=== PATIENT | male | born 1960 | race American Indian/Alaskan Native ===

== ENCOUNTER → 2016-10-13 | Outpatient (CLI) | payer MEDICAID ==
--- NOTE | 2016-10-13 14:19 | NM ---
Nuclear Medicine Whole Body Bone Scan Clinical Indications: Prostate cancer and hepatocellular cancer, evaluate response to therapy of bon e metastases Technique: 20.2 mCi technetium 99m MDP were injected intravenously. Delayed images of the skeleton were obtained in anterior and posterior projections. Comparison: August 02, 2015 bone scan Findings: There is decreased activity in skeletal metastases involving the spine and pelvis. No new metastases have developed. Impression: Improvement.
== END ==
LOC: FIMAGING 09:53
PROVIDERS: ATTEND Internal Medicine Hematology & Oncology
DX: Z08 Encounter for follow-up examination after completed treatment for malignant neoplasm (principal); C79.51 Secondary malignant neoplasm of bone; C61 Malignant neoplasm of prostate; C22.0 Liver cell carcinoma
CPT/HCPCS: 78306; A9503

== ENCOUNTER 2016-10-29 16:38 | Inpatient (IN) | payer MEDICAID ==
[2016-10-29] MEDS ORDERED: NS 1,000 ML IV ONE (18:06)
--- NOTE | 2016-10-29 18:06 | EDPHY ---
H & P Stated Complaint: Sent for eval of abnl abd CT HPI/ROS: HPI CHIEF COMPLAINT: Abdominal pain HISTORY OF PRESENT ILLNESS: This patient very pleasant 56-year-old male he has significant past medical history for liver CA, prostate CA, with sent to the emergency room after Dr. Elaine his oncologist performed a CT scan abdomen pelvis with IV contrast outpatient today for routine observation of his cancer. The CT scan was noted to have free air. Dr. Elaine was notified and referred the patient to the emergency room. The patient does complain of abdominal pain but very mild. Upon evaluation here in the emergency room he is resting comfortably is not vomiting he does complain of right-sided abdominal pain. This CT scan was done at [facility] CT was done earlier today. Dr. Orozco and Dr. Bello with Radiology review the CT scan and call Dr. Elaine. Past Medical History: Liver CA, prostate CA, DVT on Xarelto Past Surgical History: Hernia repair Social History: Denies use of drugs alcohol tobacco products Family History: noncontributory ROS REVIEW OF SYSTEMS: A comprehensive 10 point review of systems is otherwise negative aside from elements mentioned in the history of present illness. Exam Constitutional Appears well, nontoxic, triage nursing summary reviewed, vital signs reviewed, awake/alert. Eyes normal conjunctivae and sclera, EOMI, PERRLA. HENT normal inspection, atraumatic, moist mucus membranes, no epistaxis, neck supple/ no meningismus, no raccoon eyes. Respiratory clear to auscultation bilaterally, normal breath sounds, no respiratory distress, no wheezing. Cardiovascular rate normal, regular rhythm, no murmur, no edema, distal pulses normal. Gastrointestinal soft, mild tenderness palpation, no peritoneal signs no rebound, no guarding, normal bowel sounds, no distension, no pulsatile mass. Genitourinary no CVA tenderness. Musculoskeletal no midline vertebral tenderness, full range of motion, no calf swelling, no tenderness of extremities, no meningismus, good pulses, neurovascularly intact. Skin pink, warm, & dry, no rash, skin atraumatic. Neurologic awake, alert and oriented x 3, AAOx3, moves all 4 extremities equally, motor intact, sensory intact, CN II-XII intact, normal cerebellar, normal vision, normal speech. Psychiatric normal mood/affect. Heme/Lymph/Immune no lymphadenopathy. Differential diagnosis includes but is not limited to and in no particular order : Bowel obstruction, appendicitis, gallbladder disease, diverticulitis, colitis , enteritis, perforated viscus, gastritis, GERD, esophagitis, urinary tract infection, pyelonephritis, kidney stones Medical Decision Making: This patient had an IV established receive IV fluid bolus, pain medicine for abdominal pain he will have a quick KUB upright to look for free air underneath the diaphragms. Obtain blood work including lactic acid. And will notify surgery this patient has free air in the abdomen. I did speak with Dr. Elaine did tell me that 1 of the chemotherapy medications can cause bowel perforations unclear if this is what is causing his free air in his abdomen. It is also noted this patient's abdomen is mildly tender there is no guarding or peritoneal signs he does appear well he is not vomiting. Re-evaluation: ED X-RAY KUB: Upright: This shows a significant amount of free air under both hemidiaphragms concerning for bowel perforation. Image interpreted by myself. 1857: this patient is hemodynamically stable no acute distress. KUB shows free air under diaphragm large concerning for bowel perforation. I have consult General surgery at this time Dr. Roblero who agrees to admit the patient for surgery. I have updated the patient. IV Invanz order. Patient made NPO. Source: Patient - Personal History Current Tetanus Diphtheria and Acellular Pertussis (TDAP): Yes - Medical/Surgical History Hx Asthma: No Hx Chronic Respiratory Disease: No Hx Diabetes: No Hx Cardiac Disease: No Hx Renal Disease: No Hx Cirrhosis: No Hx Alcoholism: No Hx HIV/AIDS: No Hx Splenectomy or Spleen Trauma: No Other PMH: Prostate and liver CA. BLOOD CLOT LEFT LEG, chronic lower back pain , disc problem, pancreatitis,neuropathy from chemo, gout - Social History Smoking Status: Current every day smoker Constitutional: Initial Vital Signs Temperature (C) 36.7 C 10/29/16 16:42 Heart Rate 77 10/29/16 16:42 Respiratory Rate 18 10/29/16 16:42 Blood Pressure 158/102 H 10/29/16 16:42 O2 Sat (%) 95 10/29/16 16:42 O2 Delivery Mode Room Air Allergies/Adverse Reactions: No Known Allergies Allergy (Verified 10/29/16 16:42) Home Medications: Medication Instructions Recorded Sorafenib Tosylate [Nexavar] 200 mg PO BID 12/27/15 Zolpidem Tartrate [Ambien 5MG (*)] 5 mg PO HS PRN 06/07/16 Diazepam [Valium 2 MG (*)] 2 mg PO HS PRN #30 tab 06/08/16 morphINE SR [MS Contin/Oramorph 60 60 mg PO BID #14 tab 06/08/16 mg (*)] Rivaroxaban [Xarelto] 20 mg PO DAILY 10/29/16 morphINE IR [morphINE IR 15 mg (*)] 15 mg PO Q3H PRN 10/29/16 Medical Decision Making - Data Points Laboratory Results: Laboratory Results 10/29/16 18:20 10/29/16 18:20 Medications Given: Discontinued Medications Sodium Chloride (Ns) 1,000 mls @ 0 mls/hr IV ONCE ONE PRN Reason: Wide Open Stop: 10/29/16 18:07 Last Admin: 10/29/16 18:34 Dose: 1,000 mls Ertapenem 1 gm/ Sodium (Chloride) 100 mls @ 200 mls/hr IV EDNOW ONE PRN Reason: Protocol Stop: 10/29/16 19:12 Last Admin: 10/29/16 19:17 Dose: 100 mls Morphine Sulfate (Morphine) 4 mg IVP EDNOW ONE Stop: 10/29/16 18:20 Last Admin: 10/29/16 18:34 Dose: 4 mg Ondansetron HCl (Zofran) 4 mg IVP EDNOW ONE Stop: 10/29/16 18:20 Last Admin: 10/29/16 18:36 Dose: 4 mg Departure - Departure Disposition: To OP Cath/Surgery Clinical Impression: Intra-abdominal free air of unknown etiology Abdominal pain Qualifiers: Abdominal location: generalized Qualifier Code: (R10.84) Generalized abdominal pain Condition: Fair
[2016-10-29] MEDS ORDERED: ONDANSETRON 4 MG/2 ML VIAL IVP ONE (18:19)
[2016-10-29] MEDS ORDERED: ERTAPENEM 1 GM in NS 100 ML IV ONE (18:43)
[2016-10-29 18:47] LABS: % IMMATURE GRANULYOCYTES 0.7 % (0.0-1.1); ABSOLUTE IMMATURE GRANULOCYTES 0.03 10^3/uL (0.00-0.10); ADD DIFF? NO; ADD MORPH? NO; ADD SCAN? NO; ATYPICAL LYMPHOCYTE FLAG 10 (0-99); FRAGMENT RBC FLAG 0 (0-99); HEMATOCRIT 46.5 % (40.0-51.0); HEMOGLOBIN 15.4 g/dL (13.7-17.5); LEFT SHIFT FLG 20 (0-99); LIPEMIA HEMOLYSIS FLAG 80 (0-99); MEAN CELL HEMOGLOBIN 32.7 pg (27.9-34.1); MEAN CELL HEMOGLOBIN CONCENTR. 33.1 g/dL (32.4-36.7); MEAN CELL VOLUME 98.7 fL (81.5-99.8); MEAN PLATELET VOLUME 10.3 fL (8.7-11.7); PLATELET CLUMPS FLAG 0 (0-99); PLATELET COUNT 119 10^3/uL (150-400); RED BLOOD CELL COUNT 4.71 10^6/uL (4.40-6.38)
[2016-10-29 18:54] LABS: INR 1.6 (0.83-1.16); PROTIME(PATIENT) 19.1 SEC (12.0-15.0)
--- NOTE | 2016-10-29 18:56 | DX ---
AP Upright Abdomen Reason for examination: Follow-up intra-abdominal free air noted on [place] [facility] [place]. Findings: Moderate volume of free air is noted on the hemidiaphragms bilaterally. Bowel dilatation is seen. There is mild air-fluid level formation in dilated small bowel loops. A large amount of fecal material is noted in the right colon. Scoliosis and spinal degenerative changes are seen. Impression: 1. Large amount of free intra-abdominal air is demonstrated. 2. Dilated small bowel loops are seen with some air-fluid level formation.
[2016-10-29 19:00] LABS: ALANINE AMINOTRANSFERASE 40 IU/L (21-72); ALBUMIN 4.2 g/dL (3.5-5.0); ALKALINE PHOSPHATASE 104 IU/L (38-126); ANION GAP 11 mEq/L (8-16); ASPARTATE AMINOTRANSFERASE 43 IU/L (17-59); BILIRUBIN-CONJUGATED 0.4 mg/dL (0.0-0.5); BILIRUBIN-UNCONJUGATED 0.6 mg/dL (0.0-1.1); CALCIUM 8.7 mg/dL (8.5-10.4); CARBON DIOXIDE 31 mEq/l (22-31); CHLORIDE 98 mEq/L (97-110); CREATININE 0.6 mg/dL (0.7-1.3); GLOMERULAR FILTRATION RATE > 60; GLUCOSE 105 mg/dL (70-100); POTASSIUM 4.2 mEq/L (3.5-5.2); SODIUM 140 mEq/L (134-144); TOTAL PROTEIN 7.8 g/dL (6.3-8.2)
[2016-10-29 19:23] LABS: COLOR COLORLESS; LEUKOCYTE ESTERASE,URINE NEGATIVE (NEGATIVE); NITRITE,URINE NEGATIVE (NEGATIVE)
[2016-10-29] MEDS ORDERED: DEXAMETHASONE 4 MG/ML VIAL ONE (20:13)
[2016-10-29] MEDS ORDERED: morphINE *ANESTHESIA ONLY* 10 MG/ML VIAL ONE (20:14)
[2016-10-29] MEDS ORDERED: PROPOFOL/EMULSION 500 MG/50 ML BOTTLE IV ONE (20:14)
[2016-10-29] MEDS ORDERED: ROCURONIUM 50 MG/5 ML VIAL ONE ×2 (20:14→21:22)
[2016-10-29] MEDS ORDERED: LIDOCAINE 2% 5 ML SDV ONE (20:14)
[2016-10-29] MEDS ORDERED: BUPIVACAINE 0.5% 30 ML SDV ONE (20:20)
[2016-10-29] MEDS ORDERED: ceFAZolin 1 GM/5 ML SYR ONE (20:21)
[2016-10-29] MEDS ORDERED: HEPARIN 1000 UNIT/1 ML MDV ONE ×2 (20:21→22:26)
[2016-10-29] MEDS ORDERED: SUCCINYLCHOLINE CHLORIDE*ANESTHESIA ONLY*200 MG/10 ML SYR IVP ONE (20:33)
--- NOTE | 2016-10-29 20:55 | GHP ---
[f rep st] PREOP HISTORY AND PHYSICAL DATE OF ADMISSION: 10/29/2016 HISTORY OF PRESENT ILLNESS: A 56-year-old male undergoing chemotherapy for metastatic hepatocellular carcinoma. He was seen in the ER after a routine CT scan today which showed free air. He has had some upper abdominal discomfort but is relatively comfortable, afebrile, despite the significant amount of free air on plain belly films as well as the CT scan from earlier. Admitted at this time for laparoscopy, possible laparotomy. Risks and options have been fully discussed. Present illness is complicated by the fact that he is on chemo as well as on Xarelto for DVT. His chemo can cause spontaneous bowell perforations PAST MEDICAL HISTORY: Includes liver cancer, prostate cancer treated with radiation therapy, DVT on Xarelto, inguinal hernia repairs. REVIEW OF SYSTEMS: Was negative in terms of cardiac and pulmonary problems. PHYSICAL EXAMINATION: GENERAL: Reveals an alert, 56-year-old male, cooperative , afebrile, reasonably comfortable. HEAD/NECK: Reveals no icterus. CHEST: Clear. CARDIAC: Regular rhythm. ABDOMEN: Soft, slightly distended. Mildly tender in the epigastrium with positive bowel sounds. No hernias. Recent hernia scars. GENITALIA: Normal. EXTREMITIES: Without full pulses. Full range of motion. IMPRESSION: Free air. There is no signs of pneumatosis to explain his free air. Therefore, he will need surgical exploration. Risks and options have been fully discussed and he wishes to proceed despite the paltry physical findings /[id number]/MODL MTDD
[2016-10-29] MEDS ORDERED: epHEDrine SULFATE 10 MG/ML SYR ONE (21:03)
[2016-10-29] MEDS ORDERED: SUGAMMADEX SODIUM 200 MG/2 ML VIAL IVP ONE (21:47)
[2016-10-29] MEDS ORDERED: ONDANSETRON 4 MG/2 ML VIAL ONE (21:50)
--- NOTE | 2016-10-29 22:09 | POSTOPPROG ---
Post Op Note Date of Operation: 10/29/16 Surgeon: Oz Roblero Anesthesiologist: diallo Anesthesia: GET(General Endotracheal) Pre-op Diagnosis: perforated viscus Post-op Diagnosis: free air Indication: acute large amount of free air and pain Procedure: laparoscopy, laparotomy with resection mesenteric nodule Findings: no source of free air/ constipation, mesenteric nodules, cirhosis Inf/Abcess present in the surg proc area at time of surgery?: No Depth: Organ Space EBL: Minimal Complications: 0 Specimen(s): mesenteric nodule
[2016-10-29] MEDS ORDERED: ONDANSETRON 4 MG/2 ML VIAL IVP PRN (22:14)
[2016-10-29] MEDS ORDERED: OXYCODONE/APAP 5/325 TAB PO PRN (22:14)
[2016-10-29] MEDS ORDERED: ENALAPRILAT DIHYDRATE 1.25 MG/ML VIAL ONE (22:45)
[2016-10-29] MEDS ORDERED: ENALAPRILAT DIHYDRATE 1.25 MG/ML VIAL IV PRN (22:52)
[2016-10-30] MEDS: HYDROmorphONE/DILAUDID 1 MG/ML SYR IVP PRN ×10 (01:53→22:02)
[2016-10-30] MEDS: D5W 1/2 NS W/ 20 KCl/L 1,000 ML IV SCH ×2 (01:56→12:27)
[2016-10-30 05:59] LABS: % IMMATURE GRANULYOCYTES 0.2 % (0.0-1.1); ABSOLUTE IMMATURE GRANULOCYTES 0.01 10^3/uL (0.00-0.10); ADD DIFF? NO; ADD MORPH? NO; ADD SCAN? NO; ATYPICAL LYMPHOCYTE FLAG 0 (0-99); FRAGMENT RBC FLAG 0 (0-99); HEMATOCRIT 36.8 % (40.0-51.0); HEMOGLOBIN 12.5 g/dL (13.7-17.5); LEFT SHIFT FLG 10 (0-99); LIPEMIA HEMOLYSIS FLAG 90 (0-99); MEAN CELL HEMOGLOBIN 33.2 pg (27.9-34.1); MEAN CELL VOLUME 97.6 fL (81.5-99.8); MEAN PLATELET VOLUME 10.1 fL (8.7-11.7); PLATELET CLUMPS FLAG 0 (0-99); PLATELET COUNT 103 10^3/uL (150-400); RED BLOOD CELL COUNT 3.77 10^6/uL (4.40-6.38); RED CELL DISTRIBUTION WIDTH 13.9 % (11.5-15.2)
[2016-10-30 06:13] LABS: INR 1.34 (0.83-1.16); PROTIME(PATIENT) 16.6 SEC (12.0-15.0)
[2016-10-30 06:14] LABS: APTT 33.5 SEC (23.0-38.0)
[2016-10-30 06:30] LABS: ALANINE AMINOTRANSFERASE 37 IU/L (21-72); ALBUMIN 3.1 g/dL (3.5-5.0); ALKALINE PHOSPHATASE 67 IU/L (38-126); AMYLASE 47 IU/L (30-110); ANION GAP 8 mEq/L (8-16); ASPARTATE AMINOTRANSFERASE 39 IU/L (17-59); BILIRUBIN,TOTAL 0.8 mg/dL (0.1-1.4); BILIRUBIN-CONJUGATED 0.3 mg/dL (0.0-0.5); BILIRUBIN-UNCONJUGATED 0.5 mg/dL (0.0-1.1); CALCIUM 7.6 mg/dL (8.5-10.4); CARBON DIOXIDE 28 mEq/l (22-31); CHLORIDE 105 mEq/L (97-110); CREATININE 0.5 mg/dL (0.7-1.3); GLOMERULAR FILTRATION RATE > 60; GLUCOSE 134 mg/dL (70-100); POTASSIUM 4.4 mEq/L (3.5-5.2); SODIUM 141 mEq/L (134-144); TOTAL PROTEIN 6.1 g/dL (6.3-8.2)
[2016-10-30] MEDS ORDERED: ERTAPENEM 1 GM in NS 100 ML IV SCH (09:00)
[2016-10-30] MEDS ORDERED: DIAZEPAM 2 MG TAB PO PRN (10:34)
[2016-10-30] MEDS ORDERED: ZOLPIDEM TARTRATE 5 MG TAB PO PRN (10:34)
--- NOTE | 2016-10-30 10:34 | SOAPPROG ---
SOAP Progress Note Assessment/Plan: Assessment: 56yo male s/p ex-lap for free air, no etiology found during surgery. Pain 5/10, not passing gas yet, has not ambulated PE awake alert Abdomen midline stapled incision with signs of recent bleeding soft, nondistended Plan: await bowel function before initiating PO 10/30/16 10:32 Objective: Vital Signs Temp Pulse Resp BP Pulse Ox 36.5 C 63 12 130/81 H 100 10/30/16 08:00 10/30/16 08:00 10/30/16 08:00 10/30/16 08:00 10/30/16 08:00 Laboratory Results 10/30/16 05:04 10/30/16 05:04 10/29/16 10/30/16 10/31/16 05:59 05:59 05:59 Intake Total 3702 Output Total 1150 Balance 2552 PT 16.6 SEC (12.0-15.0) H 10/30/16 05:04 INR 1.34 (0.83-1.16) H 10/30/16 05:04 ICD10 Worksheet Patient Problems: Problems Problem Status Diagnosed Abdominal pain Acute Intra-abdominal free air of unknown etiology Acute Liver cell carcinoma Acute Deep vein thrombosis (DVT) of left lower extremity Acute
--- NOTE | 2016-10-30 19:14 | GPROG ---
[f rep st] PROGRESS NOTE ONCOLOGY PROGRESS NOTE. DATE OF SERVICE: 10/30/2016 HISTORY OF PRESENT ILLNESS: Nithin is a pleasant 56-year-old gentleman who is followed by my partner, Dr. Elaine. He was diagnosed with both metastatic prostate carcinoma and metastatic hepatocellular carcinoma in December of 2014. His prostate cancer diffusely involved bone, and has responded to androgen deprivation therapy and docetaxel. He completed docetaxel therapy in May of 2015. The patient's hepatocellular carcinoma was treated with TACE. He developed progressive disease in November of 2015, and was started on sorafenib at that time. He had an excellent response to sorafenib with fairly dramatic improvement in his CAT scan and his AFP level. More recently, he has been on a reduced dose of sorafenib (200 mg twice daily). The patient reports approximately 48 hours of abdominal bloating and pain. He was due to have a routine restaging CAT scan performed. This revealed unchanged bony metastatic disease, no evidence of metastatic disease in the lungs, possible evidence of local regional recurrence in the right lobe of the liver where the patient had previously been treated with TACE therapy. He had jeremi pneumoperitoneum. He had no evidence of new peritoneal implants. The patient was contacted with his CT result and referred to the emergency department. He was seen by Dr. Roblero of General Surgery, and underwent a surgical exploration last evening. There was no clear source of pneumoperitoneum identified. There was no obvious bowel perforation. The patient was noted to have mesenteric implants which were sampled and sent to pathology. Overall, he is doing well today following his surgery. He has not passed flatus. He denies nausea. He reports minimal abdominal pain. PAST MEDICAL HISTORY: 1. Hepatocellular carcinoma as outlined above. 2. Metastatic prostate carcinoma as outlined above. FAMILY MEDICAL HISTORY: The patient's father had prostate cancer. His aunt had a malignancy and of this in her 50s. Further details unknown. Half brother on his father's side had a malignancy age 17. SOCIAL HISTORY: Nithin is essentially homeless, but has several friends locally whom he lives with. He is currently not employed. He smokes approximately 1/3 pack of cigarettes daily. He drinks less than 6 alcoholic beverages per week. REVIEW OF SYSTEMS: As outlined above. Additionally, he denies fevers, chills, chest pain, cough, exertional dyspnea. Denies flank pain. Denies blood in the stool. PHYSICAL EXAM: The patient is resting comfortably. He is in no acute distress. Pupils equal. Sclerae are nonicteric. Conjunctiva normal. HEART: Regular without murmur. LUNGS: Clear bilaterally. ABDOMEN: Soft. There is minimal diffuse abdominal tenderness that does not localize. There is no abdominal distention. Bowel sounds are absent. No extremity swelling or edema. Patient is alert, oriented and appropriate. LABORATORY STUDIES: From today, white count 5.4, hemoglobin 12.5, platelet count 103,000, absolute neutrophil count 4500. Sodium 141, potassium 4.4, chloride 105, bicarb 28, BUN 6, creatinine 0.5, total bilirubin 0.8. IMPRESSION: 1. Metastatic hepatocellular carcinoma. Currently on sorafenib. 2. Metastatic prostate carcinoma with bone only metastasis status post docetaxel and hormonal therapy. 3. Pneumoperitoneum with no clear evidence of bowel perforation on exploratory laparotomy. Mr. Mcfadden overall is doing well following his exploratory laparotomy. He has minimal pain which is well controlled on his current pain medicines. No source of perforation was identified. He did have mesenteric nodules which were sampled and sent to pathology. I suspect these represent small foci of hepatocellular carcinoma. I reviewed his operative findings with him this afternoon. I suspect that he may have had a microperforation related to sorafenib. Sorafenib is associated with bowel perforation. Sorafenib is currently being held, and I recommend it continue to be held until he can be with his primary oncologist, Dr. Elaine in the outpatient setting. The patient has had a fairly good response to sorafenib; however, in light of this recent event, there is a relative contraindication to resuming it, though I do not believe that this represents an absolute contraindication to resuming sorafenib therapy. The patient will plan on discussing this in further detail with Dr. Elaine once he is discharged. He is questions were answered today. I will notify Dr. Elaine of his admission and clinical course. Total time for today's visit was approximately 45 minutes, of which greater than 50% was spent in counseling and care coordination. /[id number]/MODL MTDD
[2016-10-30] MEDS: SORAFENIB TOSYLATE 200 MG PO SCH (21:53)
[2016-10-30] MEDS ORDERED: NALOXONE HCL 0.4 MG/ML INJ IVP PRN (22:18)
[2016-10-30] MEDS: morphINE SR 60 MG TAB PO SCH (22:42)
[2016-10-30] MEDS: HYDROmorphONE/DILAUDID 6 MG/30 ML PCA IV PRN (22:43)
[2016-10-31] MEDS: morphINE SR 60 MG TAB PO SCH ×2 (09:27→21:00)
[2016-10-31] MEDS: RIVAROXABAN 20 MG TAB PO SCH ×2 (09:27→09:38)
[2016-10-31] MEDS: D5W 1/2 NS W/ 20 KCl/L 1,000 ML IV SCH ×2 (09:27→19:31)
[2016-10-31] MEDS: SORAFENIB TOSYLATE 200 MG PO SCH ×2 (09:41→20:57)
[2016-10-31] MEDS: HYDROmorphONE/DILAUDID 6 MG/30 ML PCA IV PRN (12:23)
--- NOTE | 2016-10-31 12:55 | SOAPPROG ---
SOAP Progress Note Assessment/Plan: Assessment: 56yo male s/p ex-lap for free air, no etiology found during surgery. not passing gas yet, has not ambulated much because of pain, now on CREATIVE COORDINATOR PE awake alert Abdomen midline stapled incision dry, soft, nondistended Plan: await bowel function before initiating PO 10/30/16 10:32 10/31/16 12:54 Objective: Vital Signs Temp Pulse Resp BP Pulse Ox 36.7 C 60 18 128/83 H 97 10/31/16 12:00 10/31/16 12:00 10/31/16 12:00 10/31/16 12:00 10/31/16 12:00 Laboratory Results 10/30/16 05:04 10/30/16 05:04 10/30/16 10/31/16 11/01/16 05:59 05:59 05:59 Intake Total 3702 2434 Output Total 1150 2150 Balance 2552 284 PT 16.6 SEC (12.0-15.0) H 10/30/16 05:04 INR 1.34 (0.83-1.16) H 10/30/16 05:04 ICD10 Worksheet Patient Problems: Problems Problem Status Diagnosed Abdominal pain Acute Intra-abdominal free air of unknown etiology Acute Liver cell carcinoma Acute Deep vein thrombosis (DVT) of left lower extremity Acute
[2016-11-01] MEDS: HYDROmorphONE/DILAUDID 6 MG/30 ML PCA IV PRN ×2 (00:27→13:59)
[2016-11-01] MEDS: D5W 1/2 NS W/ 20 KCl/L 1,000 ML IV SCH ×2 (05:31→15:22)
[2016-11-01] MEDS: SORAFENIB TOSYLATE 200 MG PO SCH ×2 (08:55→20:22)
[2016-11-01] MEDS: RIVAROXABAN 20 MG TAB PO SCH (08:58)
[2016-11-01] MEDS: morphINE SR 60 MG TAB PO SCH ×2 (08:58→20:23)
[2016-11-01] MEDS ORDERED: BISACODYL 10 MG SUPP PR ONE (09:49)
--- NOTE | 2016-11-01 09:52 | SOAPPROG ---
SOAP Progress Note Assessment/Plan: Assessment: DOING REASONABLY WELL UP POSTOP. INCISION IS HEALING WELL. POSITIVE BOWEL SOUNDS BUT STILL NO FLATUS Plan: CLEAR LIQUIDS AND BOBO A LAX SUPPOSITORY 11/01/16 09:48 Objective: Vital Signs Temp Pulse Resp BP Pulse Ox 36.8 C 52 L 16 124/75 H 96 11/01/16 07:54 11/01/16 07:54 11/01/16 07:54 11/01/16 07:54 11/01/16 07:54 Laboratory Results 10/30/16 05:04 10/30/16 05:04 10/31/16 11/01/16 11/02/16 05:59 05:59 05:59 Intake Total 2434 2485 Output Total 2150 2475 Balance 284 10 PT 16.6 SEC (12.0-15.0) H 10/30/16 05:04 INR 1.34 (0.83-1.16) H 10/30/16 05:04 ICD10 Worksheet Patient Problems: Problems Problem Status Diagnosed Abdominal pain Acute Intra-abdominal free air of unknown etiology Acute Liver cell carcinoma Acute Deep vein thrombosis (DVT) of left lower extremity Acute
[2016-11-02] MEDS: HYDROmorphONE/DILAUDID 6 MG/30 ML PCA IV PRN ×3 (00:08→23:58)
[2016-11-02] MEDS: D5W 1/2 NS W/ 20 KCl/L 1,000 ML IV SCH ×3 (01:22→21:06)
[2016-11-02] MEDS: morphINE SR 60 MG TAB PO SCH ×2 (08:24→21:06)
[2016-11-02] MEDS: RIVAROXABAN 20 MG TAB PO SCH (08:24)
[2016-11-02] MEDS: SORAFENIB TOSYLATE 200 MG PO SCH (08:30)
--- NOTE | 2016-11-02 18:43 | SOAPPROG ---
SOAP Progress Note Assessment/Plan: Assessment: DOING REASONABLY WELL UP POSTOP. INCISION IS HEALING WELL. POSITIVE BOWEL SOUNDS BUT STILL NO FLATUS Plan: CLEAR LIQUIDS AND BOBO A LAX SUPPOSITORY 11/01/16 09:48 11/02/16 18:42 DOING WELL WITH +FLATUS AND BMS/ WOUND OK/ AFEBRILE/ PLAN ADVANCE DIET Objective: Vital Signs Temp Pulse Resp BP Pulse Ox 36.9 C 60 16 121/79 H 96 11/02/16 18:00 11/02/16 18:00 11/02/16 18:00 11/02/16 18:00 11/02/16 18:00 Laboratory Results 10/30/16 05:04 10/30/16 05:04 11/01/16 11/02/16 11/03/16 05:59 05:59 05:59 Intake Total 2485 2050 3445 Output Total 2475 1600 500 Balance 10 450 2945 PT 16.6 SEC (12.0-15.0) H 10/30/16 05:04 INR 1.34 (0.83-1.16) H 10/30/16 05:04 ICD10 Worksheet Patient Problems: Problems Problem Status Diagnosed Abdominal pain Acute Intra-abdominal free air of unknown etiology Acute Liver cell carcinoma Acute Deep vein thrombosis (DVT) of left lower extremity Acute
[2016-11-03] MEDS: morphINE SR 60 MG TAB PO SCH ×2 (07:16→20:35)
[2016-11-03] MEDS: RIVAROXABAN 20 MG TAB PO SCH (07:16)
--- NOTE | 2016-11-03 09:24 | SOAPPROG ---
SOAP Progress Note Assessment/Plan: Assessment: 56yo male s/p ex-lap for free air, no etiology found during surgery. 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 10/30/16 10:32 10/31/16 12:54 11/03/16 09:21 Objective: Vital Signs Temp Pulse Resp BP Pulse Ox 36.8 C 64 18 141/88 H 94 11/03/16 07:41 11/03/16 07:41 11/03/16 07:41 11/03/16 07:41 11/03/16 07:41 Laboratory Results 10/30/16 05:04 10/30/16 05:04 11/02/16 11/03/16 11/04/16 05:59 05:59 05:59 Intake Total 2050 4650 Output Total 1600 500 700 Balance 450 4150 -700 PT 16.6 SEC (12.0-15.0) H 10/30/16 05:04 INR 1.34 (0.83-1.16) H 10/30/16 05:04 ICD10 Worksheet Patient Problems: Problems Problem Status Diagnosed Abdominal pain Acute Intra-abdominal free air of unknown etiology Acute Liver cell carcinoma Acute Deep vein thrombosis (DVT) of left lower extremity Acute
--- NOTE | 2016-11-03 12:57 | GOP ---
[f rep st] OPERATIVE REPORT DATE OF OPERATION: 10/29/2016 SURGEON: Oz Roblero MD [employer] TUBE BENDER: None. ANESTHESIOLOGIST: Dr. Grayson PREOPERATIVE DIAGNOSIS: Perforated viscus with free air. POSTOPERATIVE DIAGNOSIS: Free air. PROCEDURE PERFORMED: Laparoscopy and laparotomy with resection of a mesenteric nodule. FINDINGS: There was no source of free air identified. He did have a significant amount of colon con stipation, and some mesenteric nodules and evidence of cirrhosis. DESCRIPTION OF PROCEDURE: Patient taken to the operating room, where he received a satisfactory gene ral endotracheal anesthesia by Dr. Grayson. He was placed in the supine position, and prepped and dr pebblesed in the usual sterile fashion. Infraumbilical incision was made. A Veress needle inserted. Pneumoperitoneum was established. A tr ocar was introduced. Laparoscope introduced. Adequate visualization was obtained. Two other trocar s were placed in the upper abdomen under direct vision. There was no significant abdominal contamination or fluid. There was a small amount of bile-stained fluid up around the liver. He did have significant cirrhosis, but the remainder of the bowel showed no evidence of a perforation site, and no evidence of pneumatosis in the colon or the small bowel and specifically, no evidence of air in the lesser sac or in the retroperitoneum or the duodenum. After completing this exploration with the laparoscope, it was still felt that we possibly could have missed something, so we changed to a laparotomy with a midline abdominal incision. At that point, t he small bowel was all eviscerated and ran from the ligament of Treitz to the terminal ileum. No marcell dence of any perforation, diverticula, or pneumatosis. He did have some small mesenteric nodules, 1 of which was dissected free and sent out to Pathology. This was done with the Harmonic Scalpel. The colon was traced completely throughout its course with no evidence of perforation. Appendix was ret roperitoneal and negative, and the duodenum and stomach were completely free of any evidence of any p erforation. The lesser sac was opened and it was also free of any contamination or signs of perforat ion. The wound was irrigated. The stomach was then desufflated of air while under water with no evidence of any leak being demonstrated. finally, It was decided that there was no perforated viscus. The ab domen was then closed with a running #1 PDS suture for the linea alba, reinforced with #1 Vicryl inte rrupted sutures. 3-0 Vicryl for the subcu and skin shala for the skin. The wound was infiltrated with 0.5% Marcaine. He tolerated the procedure quite well. Blood loss was less than 5 cc. No complications. Taken to [facility] recovery room in good condition. /[id number]/MODL
[2016-11-03] MEDS: D5W 1/2 NS W/ 20 KCl/L 1,000 ML IV SCH ×2 (14:50→23:58)
[2016-11-04 06:16] LABS: HEMATOCRIT 34.1 % (40.0-51.0); HEMOGLOBIN 11.4 g/dL (13.7-17.5); MEAN CELL HEMOGLOBIN CONCENTR. 33.4 g/dL (32.4-36.7); MEAN CELL VOLUME 95.8 fL (81.5-99.8); RED BLOOD CELL COUNT 3.56 10^6/uL (4.40-6.38); RED CELL DISTRIBUTION WIDTH 13.2 % (11.5-15.2)
[2016-11-04 06:25] LABS: ALANINE AMINOTRANSFERASE 38 IU/L (21-72); ALBUMIN 2.9 g/dL (3.5-5.0); ALKALINE PHOSPHATASE 93 IU/L (38-126); ANION GAP 8 mEq/L (8-16); ASPARTATE AMINOTRANSFERASE 32 IU/L (17-59); BILIRUBIN,TOTAL 0.6 mg/dL (0.1-1.4); CARBON DIOXIDE 25 mEq/l (22-31); CHLORIDE 108 mEq/L (97-110); CREATININE 0.5 mg/dL (0.7-1.3); GLOMERULAR FILTRATION RATE > 60; GLUCOSE 115 mg/dL (70-100); POTASSIUM 3.8 mEq/L (3.5-5.2); SODIUM 141 mEq/L (134-144); TOTAL PROTEIN 5.5 g/dL (6.3-8.2)
[2016-11-04 07:44] VITALS: RESP 18; TEMP 98.2
[2016-11-04] MEDS: morphINE SR 60 MG TAB PO SCH (08:31)
[2016-11-04] MEDS: RIVAROXABAN 20 MG TAB PO SCH (08:31)
[2016-11-04 11:26] VITALS: BP 147/96; PULSE 71; O2SAT 93
[2016-11-04 16:35] LABS: ALPHA-FETOPROTEIN TUMOR MARKER 2.11 ng/mL (0.00-7.51)
--- NOTE | 2016-11-18 07:26 | GDS ---
[f rep st] DISCHARGE SUMMARY REASON FOR ADMISSION: Free air on x-ray. OTHER PERTINENT DIAGNOSES: Surgery for free air, history of current liver and prostate cancer, hist ory of DVT, history of recent inguinal hernia repair. HOSPITAL COURSE: Patient is a very pleasant, 56-year-old male with complicated medical history who came to the emergency department complaining of worsening abdominal pain. An x-ray and CT scan demo nstrated free air. He underwent laparoscopy and laparotomy as well as resection of mesenteric lymph node. There was no etiology found for the free air. Pathology of the omental mass/lymph node was negative for any malignancy. Patient's hospital course was fairly unremarkable. He was eventually discharged when he was tolerating a regular diet, having normal bowel movements and ambulating well. Since discharge he has been seen in our office and has been doing well. He is still taking oxycod one for pain but this week is to resume his normal pain management medications. Patient will contin ue to be seen for followup in our office over the next 30 days. /[id number]/MODL
== END 2016-11-04 13:35 | disposition home or self-care (01) | DRG 357 ==
LOC: F3E 10-30 00:35
PROVIDERS: ADMIT Surgery; ATTEND Surgery
DX: K63.89 Other specified diseases of intestine (principal); C79.51 Secondary malignant neoplasm of bone; C78.7 Secondary malignant neoplasm of liver and intrahepatic bile duct; Z85.46 Personal history of malignant neoplasm of prostate; Z86.718 Personal history of other venous thrombosis and embolism; Z79.01 Long term (current) use of anticoagulants; Z80.42 Family history of malignant neoplasm of prostate; Z72.0 Tobacco use; Z59.0 Homelessness
CPT/HCPCS: 96365; 97116-GP; 97162-GP; 97165-GO; J0330; J1100; J1170; J1335; J2405; J2704; P9017

== ENCOUNTER → 2016-11-26 | Outpatient (CLI) | payer MEDICAID | LOC: FIMAGING 16:44 | PROVIDERS: ATTEND Physician Assistant | DX: I82.412 Acute embolism and thrombosis of left femoral vein (principal); M79.662 Pain in left lower leg; Z79.01 Long term (current) use of anticoagulants ==

== ENCOUNTER → 2017-04-22 | Outpatient (CLI) | payer MEDICAID | LOC: FIMAGING 10:00 | PROVIDERS: ATTEND Nurse Practitioner | DX: C79.51 Secondary malignant neoplasm of bone (principal); C61 Malignant neoplasm of prostate | CPT/HCPCS: 78306; A9503 ==

== ENCOUNTER → 2017-09-02 | Outpatient (CLI) | payer MEDICAID | LOC: FIMAGING 08:43 | PROVIDERS: ATTEND Physician Assistant | DX: C61 Malignant neoplasm of prostate (principal); C22.0 Liver cell carcinoma; C79.51 Secondary malignant neoplasm of bone | CPT/HCPCS: 78306; A9503 ==

== ENCOUNTER → 2017-11-19 | Outpatient (CLI) | payer MEDICAID ==
[~2017-11-19] MED LIST: LIDOCAINE 1% 300 MG/30 ML SDV ONE
== END ==
LOC: FIMAGING 14:10
PROVIDERS: ATTEND Internal Medicine Hematology & Oncology
PROC: 0S9D3ZX Drainage of Left Knee Joint, Percutaneous Approach, Diagnostic (ICD-10-PCS; principal; 2017-11-19)
DX: M25.462 Effusion, left knee (principal); C61 Malignant neoplasm of prostate

== ENCOUNTER 2018-10-16 17:56 | Emergency (ER) | payer MEDICAID ==
[2018-10-16 18:14] VITALS: BP 145/111
--- NOTE | 2018-10-16 18:40 | EDPHY ---
H & P Time Seen by Provider: 10/16/18 18:21 HPI/ROS: CHIEF COMPLAINT: Rash on buttock HISTORY OF PRESENT ILLNESS: The patient is a 58-year-old male with a history of hepatocellular carcinoma and prostate cancer who is currently on oral chemotherapy presents emergency department with a painful rash on his right buttock. He noticed a rash 3 days ago. His pain is mild (2/10). He denies any fevers or chills. He has had no recent malaise. He denies abdominal pain. The patient currently takes prednisone. REVIEW OF SYSTEMS: 10 systems were reveiwed and are negative with the exception of the elements mentioned in the history of present illness. Past Medical/Surgical History: Includes hepatocellular carcinoma, prostate cancer, DVT, low back pain, pancreatitis, neuropathy, gout Social history: Patient does not smoke Smoking Status: Current some day smoker Physical Exam: vitals noted. Afebrile GENERAL: Well-appearing, in no acute distress, alert. HEENT: Eyes normal to inspection, normal pharynx, no signs of dehydration. NECK: Normal, supple. RESPIRATORY: Clear to auscultation bilaterally, no rales, rhonchi or wheezing. CVS: Regular rate and rhythm, no rubs, murmurs, or gallops. ABDOMEN: Soft, nontender, nondistended. BACK: Normal to inspection, no CVA tenderness. SKIN: Patient has 2 patches of vesicular rash on his right buttock. There is no surrounding erythema or warmth. There is no breakdown or discharge. No pallor. EXTREMITIES: No pedal edema, no joint swelling. NEURO/PSYCH: Alert and oriented, normal mood and affect, normal motor sensory exam. Constitutional: Initial Vital Signs Temperature (C) 36.7 C 10/16/18 18:10 Heart Rate 87 10/16/18 18:10 Respiratory Rate 18 10/16/18 18:10 Blood Pressure 145/111 H 10/16/18 18:10 O2 Sat (%) 95 10/16/18 18:10 O2 Delivery Mode Room Air Allergies/Adverse Reactions: No Known Allergies Allergy (Verified 10/16/18 18:14) Home Medications: Medication Instructions Recorded Sorafenib Tosylate [Nexavar] 200 mg PO BID 12/27/15 Zolpidem Tartrate [Ambien 5MG (*)] 5 mg PO HS PRN 06/07/16 Diazepam [Valium 2 MG (*)] 2 mg PO HS PRN #30 tab 06/08/16 Rivaroxaban [Xarelto] 20 mg PO DAILY 10/29/16 morphINE IR [morphINE IR 15 mg (*)] 15 mg PO Q3H PRN #30 tab 11/04/16 morphINE SR [MS Contin/Oramorph 60 60 mg PO BID #14 tab 11/04/16 mg (*)] oxyCODONE IR [Oxycodone Ir (*)] 15 mg PO Q4H #30 tab 11/04/16 Hydrocodone/APAP 5/325 [[place] 1 - 2 tab PO Q4 #11 tab 10/16/18 5/325 (RX)] Medical Decision Making ED Course/Re-evaluation: In the emergency department I discussed possible etiologies with the patient. I answered all his questions. Patient's symptoms started over 3 days ago. I do not feel he is a candidate for antiviral therapy. He currently takes prednisone. Patient will follow up with his primary care physician. I do not feel this represents a cellulitis. I do not feel he needs to be started on antibiotics. Differential Diagnosis: The patient has a vesicular rash that is consistent with zoster. There is no surrounding erythema or warmth. I think this is less likely a cellulitis or abscess. Departure - Departure Disposition: Home, Routine, Self-Care Clinical Impression: Rash Zoster Qualifiers: Herpes zoster complications: without complications Qualified Code(s): B02.9 - Zoster without complications Condition: Good Instructions: Shingles (ED) Additional Instructions: Return with increasing fever, significantly worsening rash, uncontrollable pain or any other concerns. Referrals: Erasmo Elaine MD [Medical Doctor] - 5-7 days, call for appt. Prescriptions: Hydrocodone/APAP 5/325 [[place] 5/325 (RX)] 1 - 2 tab PO Q4 #11 tab
== END 2018-10-16 18:50 | disposition home or self-care (01) ==
DX: B02.9 Zoster without complications (principal); C22.0 Liver cell carcinoma; C61 Malignant neoplasm of prostate

== ENCOUNTER 2018-10-26 03:48 | Observation (INO) | payer MEDICAID ==
[2018-10-26] MEDS ORDERED: HYDROmorphONE/DILAUDID 1 MG/ML INJ IVP ONE ×3 (04:16→06:35)
[2018-10-26] MEDS ORDERED: NS 1,000 ML IV ONE (04:16)
[2018-10-26 04:33] LABS: PLATELET COUNT 174 10^3/uL (150-400)
[2018-10-26] MEDS ORDERED: ONDANSETRON 4 MG/2 ML VIAL IVP ONE (04:33)
[2018-10-26] MEDS ORDERED: HYDROmorphONE/DILAUDID 2 MG/ML INJ IVP ONE (04:33)
--- NOTE | 2018-10-26 04:38 | EDPHY ---
H & P Stated Complaint: abdominal pain, nausea Time Seen by Provider: 10/26/18 04:19 HPI/ROS: HPI The patient presents with abdominal pain, nausea, diarrhea. He ate dinner last night at about 7:00 p.m. And had pain following this. The pain is in his left abdomen, it is moderate in severity and intermittent, getting progressively worse. He was unable to sleep much throughout the night. He developed diarrhea upon arrival in the emergency department. He is brought in by ambulance. He has a history of hepatocellular carcinoma on oral chemotherapy. He was seen in the emergency department about 10 days ago and diagnosed with shingles.. REVIEW OF SYSTEMS 10 systems were reviewed and negative with the exception of the elements mentioned in the history of present illness. PMHx: Hepatocellular carcinoma on oral chemotherapy, prostate cancer, chronic pain followed by Dr. Elaine, history of DVT Soc Hx: Here with a friend PHYSICAL General Appearance: Alert, appears uncomfortable Eyes: Pupils equal and round no pallor or injection ENT, Mouth: Mucous membranes dry Respiratory: There are no retractions, lungs are clear to auscultation Cardiovascular: Regular rate and rhythm Gastrointestinal: Abdomen is soft and tender in the left upper and left lower quadrant, no masses, bowel sounds normal Neurological: A&O, moves all extremities Skin: Warm and dry, no rashes Musculoskeletal: Neck is supple non tender Extremities: symmetrical, full range of motion Psychiatric: Patient is oriented X 3, there is no agitation Source: Patient Exam Limitations: No limitations - Personal History Current Tetanus/Diphtheria Vaccine: Yes Current Tetanus Diphtheria and Acellular Pertussis (TDAP): Yes - Medical/Surgical History Hx Asthma: No Hx Chronic Respiratory Disease: No Hx Diabetes: No Hx Cardiac Disease: No Hx Renal Disease: No Hx Cirrhosis: No Hx Alcoholism: No Hx HIV/AIDS: No Hx Splenectomy or Spleen Trauma: No Other PMH: Prostate and liver CA. BLOOD CLOT LEFT LEG, chronic lower back pain , disc problem, pancreatitis,neuropathy from chemo, gout - Social History Smoking Status: Current some day smoker Constitutional: Initial Vital Signs Temperature (C) 36.6 C 10/26/18 03:53 Heart Rate 107 H 10/26/18 03:53 Respiratory Rate 18 10/26/18 03:53 Blood Pressure 173/121 H 10/26/18 03:53 O2 Sat (%) 96 10/26/18 03:53 O2 Delivery Mode Room Air O2 (L/minute) 2 Allergies/Adverse Reactions: No Known Allergies Allergy (Verified 10/26/18 03:52) Home Medications: Medication Instructions Recorded Sorafenib Tosylate [Nexavar] 200 mg PO BID 12/27/15 Zolpidem Tartrate [Ambien 5MG (*)] 5 mg PO HS PRN 06/07/16 Diazepam [Valium 2 MG (*)] 2 mg PO HS PRN #30 tab 06/08/16 Rivaroxaban [Xarelto] 20 mg PO DAILY 10/29/16 morphINE IR [morphINE IR 15 mg (*)] 15 mg PO Q3H PRN #30 tab 11/04/16 morphINE SR [MS Contin/Oramorph 60 60 mg PO BID #14 tab 11/04/16 mg (*)] oxyCODONE IR [Oxycodone Ir (*)] 15 mg PO Q4H #30 tab 11/04/16 Hydrocodone/APAP 5/325 [[place] 1 - 2 tab PO Q4 #11 tab 10/16/18 5/325 (RX)] Medical Decision Making - Diagnostics Imaging Results: CT abdomen pelvis with IV contrast demonstrates fluid-filled colon, correlate for infectious diarrhea. Mild distal colonic wall thickening, mild small bowel wall thickening, multiple fluid-filled small bowel loops noted with mild stranding, suspect enteritis, mild colitis. Scattered bony areas of lysis and sclerosis suspicious for metastatic disease. Interpreted by direct Radiology. Imaging: I viewed and interpreted images myself Differential Diagnosis: This is a 58-year-old male with hepatocellular carcinoma on oral chemotherapy is who presents from home with his about 10 hr of nausea, abdominal pain, now diarrhea. The patient is having significant pain and is given several doses of IV Dilaudid. Labs show mild hypokalemia and slight anion gap. Patient received IV fluids. CT scan abdomen pelvis is performed which is consistent with colitis , enteritis. On reassessment, patient is having ongoing pain and is very symptomatic. He does not think he would be able to manage at home. I will admit him to the hospital. I have discussed the case with Dr. Baxter who will admit the patient. Differential diagnosis includes diverticulitis, colitis, gastroenteritis, pancreatitis. - Data Points Laboratory Results: Laboratory Results 10/26/18 04:00 10/26/18 04:00 10/26/18 10/26/18 04:00 04:00 WBC 7.74 10^3/uL 10^3/uL (3.80-9.50) RBC 5.22 10^6/uL 10^6/uL (4.40-6.38) Hgb 17.3 g/dL g/dL (13.7-17.5) Hct 52.1 % H % (40.0-51.0) MCV 99.8 fL fL (81.5-99.8) MCH 33.1 pg pg (27.9-34.1) MCHC 33.2 g/dL g/dL (32.4-36.7) RDW 13.2 % % (11.5-15.2) Plt Count 174 10^3/uL 10^3/uL (150-400) MPV 10.5 fL fL (8.7-11.7) Neut % (Auto) 78.8 % H % (39.3-74.2) Lymph % (Auto) 16.9 % % (15.0-45.0) Levy % (Auto) 2.3 % L % (4.5-13.0) Eos % (Auto) 1.7 % % (0.6-7.6) Baso % (Auto) 0.0 % L % (0.3-1.7) Nucleat RBC Rel Count 0.0 % % (0.0-0.2) Absolute Neuts (auto) 6.10 10^3/uL 10^3/uL (1.70-6.50) Absolute Lymphs (auto) 1.31 10^3/uL 10^3/uL (1.00-3.00) Absolute Monos (auto) 0.18 10^3/uL L 10^3/uL (0.30-0.80) Absolute Eos (auto) 0.13 10^3/uL 10^3/uL (0.03-0.40) Absolute Basos (auto) 0.00 10^3/uL L 10^3/uL (0.02-0.10) Absolute Nucleated RBC 0.00 10^3/uL 10^3/uL (0-0.01) Immature Gran % 0.3 % % (0.0-1.1) Immature Gran # 0.02 10^3/uL 10^3/uL (0.00-0.10) Sodium 145 mEq/L mEq/L (135-145) Potassium 3.1 mEq/L L mEq/L (3.5-5.2) Chloride 108 mEq/L mEq/L (97-110) Carbon Dioxide 21 mEq/l L mEq/l (22-31) Anion Gap 16 mEq/L H mEq/L (6-14) BUN 20 mg/dL mg/dL (7-23) Creatinine 0.8 mg/dL mg/dL (0.7-1.3) Estimated GFR > 60 Glucose 140 mg/dL H mg/dL (70-100) Calcium 9.8 mg/dL mg/dL (8.5-10.4) Total Bilirubin 1.5 mg/dL H mg/dL (0.1-1.4) Conjugated Bilirubin 0.5 mg/dL mg/dL (0.0-0.5) Unconjugated Bilirubin 1.0 mg/dL mg/dL (0.0-1.1) AST 49 IU/L IU/L (17-59) ALT 16 IU/L L IU/L (21-72) Alkaline Phosphatase 133 IU/L H IU/L (38-126) Total Protein 9.3 g/dL H g/dL (6.3-8.2) Albumin 5.2 g/dL H g/dL (3.5-5.0) Lipase 58 IU/L IU/L (23-300) Medications Given: Discontinued Medications Hydromorphone HCl (Dilaudid) 0.5 mg IVP EDNOW ONE Stop: 10/26/18 04:17 Last Admin: 10/26/18 04:19 Dose: 0.5 mg Hydromorphone HCl (Dilaudid) 0.5 mg IVP EDNOW ONE Stop: 10/26/18 04:34 Last Admin: 10/26/18 04:44 Dose: 0.5 mg Hydromorphone HCl (Dilaudid) 1 mg IVP EDNOW ONE Stop: 10/26/18 05:53 Last Admin: 10/26/18 05:52 Dose: 1 mg Sodium Chloride (Ns) 1,000 mls @ 0 mls/hr IV ONCE ONE PRN Reason: Wide Open Stop: 10/26/18 04:17 Last Admin: 10/26/18 04:19 Dose: 1,000 mls Ondansetron HCl (Zofran) 4 mg IVP EDNOW ONE Stop: 10/26/18 04:34 Last Admin: 10/26/18 04:44 Dose: 4 mg Departure - Departure Disposition: [facility] Inpatient Acute Clinical Impression: Diarrhea, Liver cell carcinoma, Abdominal pain, Colitis Condition: Fair Referrals: NONE *PRIMARY CARE P,. [Primary Care Provider] - As per Instructions
[2018-10-26] MEDS ORDERED: IOHEXOL 350mgI/ML (OMNIPAQUE) 150 ML BTL IV ONE (05:09)
[2018-10-26] MEDS ORDERED: HYDROmorphONE/DILAUDID 1 MG/ML INJ ONE (05:47)
[2018-10-26] MEDS ORDERED: oxyCODONE IR 5 MG TAB PO PRN (06:28)
[2018-10-26] MEDS ORDERED: diphenhydrAMINE 25 MG CAP PO PRN (06:28)
[2018-10-26] MEDS ORDERED: ONDANSETRON 4 MG/2 ML VIAL IVP PRN (06:28)
[2018-10-26] MEDS ORDERED: LORazepam 2 MG/ML INJ IVP PRN (06:28)
[2018-10-26] MEDS ORDERED: ONDANSETRON DISINTEGRATING 4 MG TAB PO PRN (06:28)
[2018-10-26] MEDS ORDERED: PROMETHAZINE HCL 25 MG/ML INJ IVP PRN (06:28)
[2018-10-26] MEDS ORDERED: ACETAMINOPHEN 325 MG TAB PO PRN (06:28)
[2018-10-26] MEDS: NS W/ 20 KCl/L 1,000 ML IV SCH ×2 (08:31→19:11)
--- NOTE | 2018-10-26 10:20 | GHP ---
[f rep st] HISTORY AND PHYSICAL DATE OF ADMISSION: 10/26/2018 PRIMARY ONCOLOGIST: Dr. Erasmo Elaine SOURCE: Patient provides history, appears reliable. EMR was reviewed and case discussed with ED pro vider. CHIEF COMPLAINT: Abdominal pain, nausea, vomiting, diarrhea. HISTORY OF PRESENT ILLNESS: Very pleasant 58-year-old gentleman with past medical history significan t for hepatocellular carcinoma on oral chemotherapy, prostate cancer status post radiation, chronic p ain, chronic neuropathy, history of DVT on Xarelto, gout who presents to the emergency department wit h complaints of 24 hours of abdominal pain, nausea, vomiting, diarrhea. Patient's diarrhea started u eloisa arrival to the ED. He reports positive sick contacts with similar symptoms. Patient without any recent travel. No known foodborne exposures. Patient denies any fevers or chills. He does report some right lateral, right lower quadrant abdominal pain that is intermittent cramping type pain. He denies any melena, hematochezia, or hematemesis. REVIEW OF SYSTEMS: Ten systems reviewed, negative, except as noted above. HOME MEDICATIONS: Oxy IR, morphine SR, morphine IR, Ambien, Nexavar, Xarelto, [place], Valium. See me dication reconciliation for dosing. ALLERGIES: No known drug allergies. PAST MEDICAL HISTORY: Significant for hepatocellular carcinoma on oral chemo, prostate cancer status post XRT, chronic back pain, history of DVT on Xarelto, chronic narcotic therapy, degenerative disk disease, history of pancreatitis, neuropathy following chemo and gout. PAST SURGICAL HISTORY: Significant for inguinal hernia repair, exploratory laparotomy for perforatio n of clear etiology with resection of mesenteric lymph node in 2017. FAMILY HISTORY: Significant for positive sick contact with GI symptoms similar. SOCIAL HISTORY: Patient does smoke tobacco 2 to 3 cigarettes per day. No illicit drugs or marijuana . No alcohol. CODE STATUS: Full. Patient desires his girlfriend to act as proxy if needed. PHYSICAL EXAMINATION: VITAL SIGNS: Upon arrival to the ED, blood pressure 145/111, heart rate is 87 , respiratory rate 18, O2 saturation 95% on room air, temperature of 36.7. Current vitals: Blood pr essure is 142/94, heart rate 94, respiratory rate 18, O2 saturation 98% on room air, temperature 36.6 . GENERAL: No acute distress. Chronically ill-appearing gentleman is lying quietly in bed appears fatigued and acutely ill, but nontoxic. Does appear uncomfortable, cradles his abdomen. HEAD: Norm ocephalic, atraumatic. EYES: Extraocular muscles grossly intact. Pupils equal, round decreased reactivity to light bilater ally and symmetric. No scleral icterus or conjunctival injection. ENT: Patient is edentulous. Muc ous membranes appear dry. No nasal discharge. NECK: Supple. Trachea midline. CV: Slightly dista nt heart sounds. Tachycardic in the 90s. Regular rhythm. Unable to appreciate any murmurs, rubs, o r gallops. RESPIRATORY: Lungs clear to auscultation bilaterally. No wheezes, rales, or rhonchi. D ecreased inspiratory effort. ABDOMEN: Obese soft. Patient with tenderness to palpation in the righ t lateral abdomen and right lower quadrant. No rebound, guarding, or mass appreciated. : No supr apubic tenderness to palpation. No Gan catheter in place. EXTREMITIES: No cyanosis, clubbing, or edema appreciated. 2+ pedal pulses bilaterally and symmetric. Dry flaking skin on the feet. NEURO : Grossly nonfocal. No facial drooping. Moves all extremities. PSYCH: Patient awake, alert, and oriented x3. Pleasant and cooperative. Thought process, content, questions appropriate. LABORATORY/IMAGING: WBC 7.74, H and H is 17.3 and 52.1, MCV 99.8, platelet count 174, neutrophil per cent 78.8, no bands. Sodium is 145, potassium 3.1, chloride is 108, CO2 21, anion gap 16, BUN is 20, creatinine 0.8, GFR greater than 60, glucose 140, calcium 9.8. Total bilirubin is 1.5, conjugated 0 .5, ALT 16, AST is 49, alkaline phosphatase is 133, total protein 7.3, albumin 5.2, lipase 58. CT abdomen and pelvis image and preliminary report reviewed showing: Fluid-filled. Mild distal colo roderick wall thickening. Mild small bowel wall thickening. Mild stranding within the small bowel mesent ruel. Enteritis is suspected. Mild colitis also possible. Scattered bony areas of lysis sclerosis, suspicious for metastatic disease. Nodular liver appears suspicious for cirrhosis. ASSESSMENT/PLAN: 58-year-old gentleman with history of hepatocellular carcinoma, prostate cancer, ch ronic pain who presents to the emergency department with 24 hours of abdominal pain, nausea, vomiting , diarrhea, and positive sick contacts. 1. Abdominal pain. Concerning for enteritis and possibly colitis, likely viral in etiology given mu ltiple sick contacts. Patient does not have any bloody diarrhea. We will check a gastrointestinal P CR. Hold off on antibiotic therapy, suspicious for a viral etiology. Gastrointestinal PCR is pendin g. Supportive care. Morphine and Ativan available p.r.n. When patient is able to tolerate, resume his home medications, including multiple narcotics.. 2. Nausea and vomiting were improved, status post Zofran in the emergency department. 3. Hypokalemia, secondary to gastrointestinal losses. Intravenous replacement until patient can bing erate oral intake. 4. Hepatocellular carcinoma. Can resume patient's chemotherapy when tolerating p.o. 5. Hyperbilirubinemia in setting of hepatocellular carcinoma. 6. History of deep venous thrombosis. Continue Xarelto. 7. Fluids, electrolytes, nutrition. Intravenous fluid supplementation with potassium replacement. 8. Continue with clear liquids as tolerated. Advance diet as tolerated. 9. Prophylaxis, on Xarelto. 10. COR status is full. DISPOSITION: [facility] IV fluid hydr ation and symptom control. /[id number]/MODL
--- NOTE | 2018-10-26 14:02 | ASMTCMCOM ---
CM Note CM Note Notes: Chart reviewed. Patient admitted with abdominal pain with N/V/D. History significant for hepatocellular carcinoma. CM to follow for needs. Plan: TBD Date Signed: 10/26/2018 02:01 PM Electronically Signed By:Maryanne Spring RN
[2018-10-26] MEDS ORDERED: DIAZEPAM 2 MG TAB PO PRN (14:58)
--- NOTE | 2018-10-26 16:10 | HOSPPROG ---
Hospitalist Progress Note Assessment/Plan: Mr Mcfadden is 58-year-old gentleman with history of hepatocellular carcinoma , prostate cancer, chronic pain who presents to the emergency department with 24 hours of abdominal pain, nausea, vomiting, diarrhea, and positive sick contacts. First encounter, chart reviewed. *Abdominal pain. -resolved, said he had significant pain on admission *likely a viral gastroenteritis -GI PCR pending -said diarrhea has stopped -feels much better after getting IV hydration * Nausea and vomiting - improved, status post Zofran in the emergency department - trial of clear liquids * Hypokalemia, secondary to gastrointestinal losses. -on replacement * Hepatocellular carcinoma -resumed his home meds * Hyperbilirubinemia in setting of hepatocellular carcinoma. * History of deep venous thrombosis. -resumed Xarelto. *plan: will do a trial of clear liquids, resumed his home meds, decrease IV fluids, > 30 minutes f/u and seeing Nithin. Subjective: Nithin is feeling much better this afternoon Objective: Vital Signs Temp Pulse Resp BP Pulse Ox 37.9 C 74 16 102/66 94 10/26/18 11:24 10/26/18 15:34 10/26/18 15:34 10/26/18 15:34 10/26/18 15:34 10/25/18 10/26/18 10/27/18 05:59 05:59 05:59 Intake Total 1000 Balance 1000 - Physical Exam Constitutional: no apparent distress, not in pain Eyes: PERRL Ears, Nose, Mouth, Throat: hearing normal Respiratory: no respiratory distress Gastrointestinal: normoactive bowel sounds, soft, non-tender abdomen Skin: warm Musculoskeletal: full muscle strength Neurologic: AAOx3 Psychiatric: interacting appropriately ICD10 Worksheet Patient Problems: Problems Problem Status Onset Abdominal pain Acute Colitis Acute Diarrhea Acute Liver cell carcinoma Acute Deep vein thrombosis (DVT) of left lower extremity Acute Intra-abdominal free air of unknown etiology Acute
[2018-10-26] MEDS ORDERED: morphINE IR 30 MG TAB PO PRN (16:43)
[2018-10-26] MEDS: HYDROCODONE/APAP 5/325 TAB PO SCH ×2 (17:01→22:07)
[2018-10-26] MEDS: CYCLOBENZAPRINE 10 MG TAB PO SCH ×2 (17:01→23:11)
[2018-10-26] MEDS: predniSONE 5 MG TAB PO SCH (22:07)
[2018-10-27] MEDS: NS W/ 20 KCl/L 1,000 ML IV SCH (00:56)
[2018-10-27] MEDS: HYDROCODONE/APAP 5/325 TAB PO SCH ×4 (03:05→15:13)
[2018-10-27 08:43] LABS: PLATELET COUNT 94 10^3/uL (150-400)
[2018-10-27] MEDS ORDERED: Abiraterone Acetate [Zytiga] 1,000 MG PO SCH (09:00)
[2018-10-27] MEDS ORDERED: RIVAROXABAN 20 MG TAB PO SCH (09:00)
[2018-10-27] MEDS: CYCLOBENZAPRINE 10 MG TAB PO SCH ×2 (09:32→15:15)
[2018-10-27] MEDS: predniSONE 5 MG TAB PO SCH (09:32)
[2018-10-27] MEDS ORDERED: morphINE SR 60 MG TAB PO SCH (12:15)
--- NOTE | 2018-10-27 13:51 | HOSPPROG ---
Hospitalist Progress Note Assessment/Plan: Mr Mcfadden is 58-year-old gentleman with history of hepatocellular carcinoma , prostate cancer, chronic pain who presents to the emergency department with 24 hours of abdominal pain, nausea, vomiting, diarrhea, and positive sick contacts. *Abdominal pain. -resolved, said he had significant pain on admission -trial of reg diet now *likely a viral gastroenteritis -GI PCR was not sent-he had no further diarrhea * Nausea and vomiting - improved, status post Zofran in the emergency department -resolved * Hypokalemia, secondary to gastrointestinal losses. -on replacement * Hepatocellular carcinoma -resumed his home meds * Hyperbilirubinemia in setting of hepatocellular carcinoma. * History of deep venous thrombosis. -resumed Xarelto. *plan: dc today if eating and tolerating reg diet, has a f/u appt w Dr Elaine Subjective: Nithin has no complaints, feeling well. Objective: Vital Signs Temp Pulse Resp BP Pulse Ox 37.0 C 62 18 111/71 95 10/27/18 12:40 10/27/18 12:40 10/27/18 12:40 10/27/18 12:40 10/27/18 12:40 Laboratory Results 10/27/18 08:25 10/27/18 04:39 10/26/18 10/27/18 10/28/18 05:59 05:59 05:59 Intake Total 3727 Output Total 300 500 Balance 3427 -500 - Physical Exam Constitutional: no apparent distress, appears nourished, not in pain Eyes: PERRL Ears, Nose, Mouth, Throat: hearing normal Cardiovascular: regular rate and rhythym Respiratory: no respiratory distress Gastrointestinal: normoactive bowel sounds Skin: warm Musculoskeletal: full muscle strength Neurologic: AAOx3 Psychiatric: interacting appropriately ICD10 Worksheet Patient Problems: Problems Problem Status Onset Abdominal pain Acute Colitis Acute Diarrhea Acute Liver cell carcinoma Acute Deep vein thrombosis (DVT) of left lower extremity Acute Intra-abdominal free air of unknown etiology Acute
--- NOTE | 2018-10-27 14:07 | ASMTLACE ---
LACE Length of stay for Answers: 1 day current admission Acuity / Level of Answers: No Care: Did the patient have an inpatient admission? Comorbidities - select Answers: Any tumor (including all that apply lymphoma or leukemia) Opioid dependence / Chronic pain Other Notes: DVT # of Emergency department Answers: 1-2 visits in the last 6 months Score: 9 Date Signed: 10/27/2018 02:07 PM Electronically Signed By:Carley Dhaliwal RN
--- NOTE | 2018-10-27 14:10 | ASMTCMCOM ---
CM Note CM Note Notes: D/w [employer], pt will dc independent. No needs identified, CM available for any changes. DC Plan: Independent Date Signed: 10/27/2018 02:08 PM Electronically Signed By:Carley Dhaliwal RN
[2018-10-27 15:51] VITALS: BP 108/73
--- NOTE | 2018-10-27 17:09 | GDS ---
[f rep st] DISCHARGE SUMMARY DISCHARGE DIAGNOSES: 1. Abdominal pain. 2. Likely viral gastritis. 3. Nausea and vomiting. 4. Hypokalemia. 5. Hepatocellular carcinoma. 6. Hyperbilirubinemia in the setting of hepatocellular carcinoma. 7. History of deep venous thrombosis. HISTORY OF PRESENT ILLNESS: Briefly, Mr. Mcfadden is 58-year-old gentleman with history of hepatocellular carcinoma, prostate cancer, chronic pain who presented to the ER with 24 hours of abdominal pain, nausea, vomiting, and diarrhea. His significant other at home had been sick with similar symptoms. He was admitted. He had a CT of the abdomen performed which showed features suggestive of enterocolitis. He had no obstruction or adynamic ileus. He had no free fluid or abscess. It was noted that he has a cirrhotic liver with sequelae of transarterial embolization and scarring in the right lobe. It was recommended if dedicated surveillance imaging has not been recently performed recommending multiphasic MRI of the abdomen or multiphase CT of the abdomen with delayed imaging to optimally characterize for residual recurrent hepatocellular carcinoma. I reviewed these findings with Oncology. They will follow up in regard to this and have this information scanned into his chart. He did improve throughout his stay with oral and IV hydration. Today he is eating and drinking well. He will be discharged home and follow up with his Primary Care and Oncology in the outpatient setting. HOSPITAL COURSE BY PROBLEM: 1. Abdominal pain, resolved. 2. Likely a viral gastritis. He had no further diarrhea, so a GI PCR was not sent. 3. Nausea and vomiting, resolved. 4. Hypokalemia. He is on replacement therapy. 5. Hepatocellular carcinoma. Resumed his home medications. 6. Hyperbilirubinemia. This is in the setting of hepatocellular carcinoma. 7. History of DVT. Resumed his Xarelto. DISCHARGE CONDITION: Stable. Blood pressure is 108/73, heart rate 65, respiratory rate of 18, O2 sat on room air 95%, temperature is 36.8 Celsius. MEDICATIONS AT DISCHARGE: Please see the EMR. DISCHARGE INSTRUCTIONS: 1. To follow up with Oncology regarding the CT findings. He may need further imaging. 2. Get a repeat urinalysis with his primary care provider. He had some red blood cells noted. 3. To stay well hydrated. 4. If he has any fever, weakness, pain, nausea, diarrhea, or shortness of breath, return to the ER. /[id number]/MODL MTDD
[2018-10-27] MEDS ORDERED: morphINE SR 30 MG TAB PO SCH (21:00)
== END 2018-10-27 16:00 | disposition home or self-care (01) ==
LOC: EDUNIT# → INTOOBSV 06:27 → F1N 07:45
PROVIDERS: ADMIT Family Medicine; ATTEND Internal Medicine
DX: R10.9 Unspecified abdominal pain (principal); R11.2 Nausea with vomiting, unspecified; E87.6 Hypokalemia; C22.0 Liver cell carcinoma; E80.6 Other disorders of bilirubin metabolism; M54.5 Low back pain; G62.0 Drug-induced polyneuropathy; T45.1X5A Adverse effect of antineoplastic and immunosuppressive drugs, initial encounter; Z86.718 Personal history of other venous thrombosis and embolism; Z85.46 Personal history of malignant neoplasm of prostate; F17.210 Nicotine dependence, cigarettes, uncomplicated
CPT/HCPCS: 74177; 96361; 96374; 96375; 96376; 97161; 97165; 99285; G0378; J1170; J2270; J2405; J7512; Q9967

== ENCOUNTER → 2019-01-04 | Outpatient (CLI) | payer MEDICAID | LOC: FIMAGING 10:53 | PROVIDERS: ATTEND Internal Medicine Hematology & Oncology | DX: C79.51 Secondary malignant neoplasm of bone (principal); C61 Malignant neoplasm of prostate; C22.0 Liver cell carcinoma | CPT/HCPCS: 78306; A9503 ==